=== PATIENT | male | born 1965 | race Caucasian/White ===

== ENCOUNTER 2016-06-16 15:17 | Emergency (ER) | payer OTHER ==
[2016-06-16 15:46] LABS: BASOPHIL 0.4 % (0-2); EOSINOPHIL 0.2 % (0-5); HCT 43.9 % (42.0-52.0); HGB 15.3 g/dl (13.2-18.0); LYMPHOCYTE 17.5 % (15-48); MCH 30.8 pg (25.0-31.0); MCHC 34.9 g/dL (32.0-36.0); MCV 88.5 fL (78.0-100.0); MONOCYTE 6.4 % (0-12); MPV 9.7 fL (6.0-9.5); NEUTROPHIL 75.5 % (41-80); PLT 319 K/uL (150-400); RBC 4.96 M/uL (4.70-6.00); RDW 13.2 % (11.5-14.0); WBC 14.5 K/uL (4.0-10.5)
[2016-06-16 15:57] LABS: INR 1.25 (0.9-1.2); PROTHROMBIN TIME 15.3 SECONDS (11.7-14.0); PTT 27.6 SECONDS (23.2-31.4)
[2016-06-16 15:58] LABS: D-DIMER < 0.27 ug/mLFEU (0.00-0.41)
[2016-06-16 16:08] LABS: ALBUMIN 3.9 g/dL (3.5-5.0); BILIRUBIN - TOTAL 1.3 mg/dL (0.1-1.0); GLOBULIN (CALCULATION) 3.5 g/dL (2.2-4.2); MAGNESIUM 1.8 mg/dL (1.40-2.10); POTASSIUM 3.2 mmol/L (3.5-5.1); TOTAL PROTEIN 7.4 g/dL (6.4-8.3)
[2016-06-16 16:10] LABS: CKMB 3.49 ng/mL (0.97-4.94); MYOGLOBIN 89 ng/mL (26-65); PRO-BNP 207 pg/mL (0-125); TROPONIN T < 0.010 ng/mL
[2016-06-16 17:11] LABS: AMPHETAMINES POSITIVE (NEGATIVE); BARBITURATES NEGATIVE (NEGATIVE); BENZODIAZEPINES NEGATIVE (NEGATIVE); COCAINE POSITIVE (NEGATIVE); MARIJUANA (THC) NEGATIVE (NEGATIVE); METHADONE NEGATIVE (NEGATIVE); TRICYCLIC ANTIDEPRESSANT NEGATIVE (NEGATIVE)
== END 2016-06-16 19:01 | disposition left against medical advice (07) ==
LOC: FER 15:17
PROVIDERS: Emergency Medicine
DX: R07.2 Precordial pain (principal); F19.10 Other psychoactive substance abuse, uncomplicated; R06.02 Shortness of breath; I50.9 Heart failure, unspecified; I25.2 Old myocardial infarction; F17.200 Nicotine dependence, unspecified, uncomplicated; Z86.73 Personal history of transient ischemic attack (TIA), and cerebral infarction without residual deficits; Z79.899 Other long term (current) drug therapy; Z95.1 Presence of aortocoronary bypass graft
CPT/HCPCS: 36415; 71010; 80053; 80305; 82550; 82553; 83735; 83874; 83880; 84484; 85025; 85379; 85610; 85730; 93005